=== PATIENT | male | born 1970 | race Caucasian/White ===

== ENCOUNTER 2016-12-31 18:07 | Emergency (ER) | payer OTHER ==
[~2016-12-31] VITALS: Ht 193 cm; Wt 120.4 kg
[2016-12-31 18:13] VITALS: BP 132/86
[2016-12-31] MEDS ORDERED: LIDOCAINE 1%, 20ML ONE (18:23)
[2016-12-31] MEDS ORDERED: DIPH,PERTUSS(ACELL),TET VAC/PF 0.5 ML IM-VACC ONE ×2 (18:43→19:00)
[2016-12-31] MEDS ORDERED: LIDOCAINE 1%, 20ML INFIL ONE (19:00)
[2016-12-31] MEDS ORDERED: BACITRACIN ZINC OINT 500U/GM, 0.9 GM ONE (19:57)
== END 2016-12-31 20:20 | disposition home or self-care (01) ==
LOC: ED 20:14
DX: S61.314A Laceration without foreign body of right ring finger with damage to nail, initial encounter (principal); X58.XXXA Exposure to other specified factors, initial encounter; Y93.89 Activity, other specified; Y99.8 Other external cause status; Y92.89 Other specified places as the place of occurrence of the external cause
CPT/HCPCS: 12001; 90471; 90715